=== PATIENT | male | born 1940 | race Caucasian/White ===

== ENCOUNTER 2018-09-18 10:43 | Emergency (ER) | payer MEDICARE, OTHER ==
[~2018-09-18] VITALS: Ht 170.2 cm; Wt 68.9 kg
[2018-09-18] MEDS ORDERED: CANCER MEDICATION (11:01)
--- NOTE | 2018-09-18 11:35 | NUR ---
Dr. Arcos at bedside for MSE.
[2018-09-18 11:51] LABS: BASOPHILS % (AUTO) 0.8 % (0.0-2.0); EOSINOPHILS % (AUTO) 0.5 % (0.0-7.0); HEMATOCRIT 37.3 % (36.7-47.1); HEMOGLOBIN 12.7 g/dL (12.5-16.3); MEAN CORPUSCULAR HEMOGLOBIN 31.4 uug (23.8-33.4); MEAN CORPUSCULAR HGB CONC 34 g/dL (32.5-36.3); MEAN CORPUSCULAR VOLUME 92.5 fL (73.0-96.2); MONOCYTES # (AUTO) 0.5 K/uL (2.0-10.0); MONOCYTES % (AUTO) 10.5 % (0.0-11.0); NEUTROPHILS # (AUTO) 3.4 K/uL (1.8-8.9); NEUTROPHILS % (AUTO) 68.2 % (38.5-71.5); PLATELET COUNT (AUTO) 187 K/uL (152-348); RED BLOOD CELL COUNT(AUTO) 4.04 MIL/uL (4.06-5.63)
[2018-09-18 12:01] LABS: CARBON DIOXIDE 29 mmol/L (21-32); CHLORIDE 102 mmol/L (98-107); GLUCOSE 156 mg/dL (74-106); POTASSIUM 3.8 mmol/L (3.5-5.1); UREA NITROGEN, BLOOD 14 mg/dL (7-18)
[2018-09-18 12:07] LABS: ALANINE AMINOTRANSFERASE 30 U/L (16-63); ALKALINE PHOSPHATASE 35 U/L (50-136); ASPARTATE AMINOTRANSFERASE 21 U/L (15-37); BILIRUBIN,DIRECT 1.8 mg/dL (0.0-0.2); BILIRUBIN,TOTAL 2.3 mg/dL (0.2-1.0); TOTAL PROTEIN, SERUM 7.9 g/dL (6.4-8.2)
[2018-09-18] MEDS ORDERED: NEOMY/BACITRA/POLYMYXIN B OINT UD PACKET TP ONE ×2 (12:21→12:30)
[2018-09-18 12:27] VITALS: BP 123/60
--- NOTE | 2018-09-18 12:28 | NUR ---
Patient discharged to home in stable conditon. Written and verbal after care instructions given. Patient verbalizes understanding of instructions.
== END 2018-09-18 12:28 | disposition home or self-care (01) ==
LOC: ER 10:43
DX: R23.8 Other skin changes (principal); E11.9 Type 2 diabetes mellitus without complications
CPT/HCPCS: 36415; 73130; 85025; 85730; A4663

== ENCOUNTER 2020-04-14 05:09 | Inpatient (IN) | payer MEDICARE, OTHER ==
[~2020-04-14] VITALS: Ht 165.1 cm; Wt 71.8 kg
[~2020-04-14 05:09] MED LIST: CANCER MEDICATION
[2020-04-14] MEDS ORDERED: ONDANSETRON 4 MG/2 ML VIAL IV ONE (05:30)
[2020-04-14] MEDS ORDERED: PANTOPRAZOLE SODIUM 40 MG VIAL IV ONE (05:30)
[2020-04-14] MEDS ORDERED: MORPHINE SULFATE 2 MG/1 ML DISP.SYRIN IV ONE (05:30)
[2020-04-14] MEDS ORDERED: PANTOPRAZOLE SODIUM 40 MG VIAL ONE (05:46)
[2020-04-14] MEDS ORDERED: MORPHINE SULFATE 2 MG/1 ML DISP.SYRIN ONE (05:46)
[2020-04-14] MEDS ORDERED: ONDANSETRON 4 MG/2 ML VIAL ONE (05:46)
[2020-04-14 05:48] LABS: BASOPHILS % (AUTO) 0.8 % (0.0-2.0); EOSINOPHILS % (AUTO) 0.4 % (0.0-7.0); HEMOGLOBIN 11.8 g/dL (12.5-16.3); LYMPHOCYTES # (AUTO) 0.7 K/uL (20.0-40.0); LYMPHOCYTES % (AUTO) 10.8 % (20.5-51.5); MEAN CORPUSCULAR HEMOGLOBIN 31.7 uug (23.8-33.4); MEAN CORPUSCULAR HGB CONC 34 g/dL (32.5-36.3); MEAN CORPUSCULAR VOLUME 93.8 fL (73.0-96.2); MONOCYTES # (AUTO) 0.7 K/uL (2.0-10.0); NEUTROPHILS # (AUTO) 4.9 K/uL (1.8-8.9); PLATELET COUNT (AUTO) 223 K/uL (152-348); RED BLOOD CELL COUNT(AUTO) 3.73 MIL/uL (4.06-5.63); WHITE BLOOD COUNT (AUTO) 6.3 K/uL (3.6-10.2)
[2020-04-14 05:56] LABS: CREATININE 1.1 mg/dL (0.6-1.3); POTASSIUM 3.8 mmol/L (3.5-5.1)
[2020-04-14 06:01] LABS: BILIRUBIN,DIRECT 1.8 mg/dL (0.0-0.2); BILIRUBIN,TOTAL 2.4 mg/dL (0.2-1.0)
--- NOTE | 2020-04-14 06:05 | NUR ---
pt back from CT
[2020-04-14] MEDS ORDERED: METF-442 PO (06:51)
--- NOTE | 2020-04-14 07:18 | NUR ---
Called [facility] for panel placement
--- NOTE | 2020-04-14 07:32 | NUR ---
Pt. admitted to [facility] , under care of Dr. Corrigan Belongs List completed
[2020-04-14 09:00] VITALS: BP 141/66
--- NOTE | 2020-04-14 09:00 | NUR ---
received pt. from ER on wheel chair admitted for pancreatitis. pt. is alert oriented x3 but forgetful. vital signs stable. IV in L AC 20 gauge intact patent. Pt. refuses to have body assessed for initial integumentary assessment. Educated pt. on importance of assessment pt. still refused and says everything is okay no need for assessment. safety measures in place. call light within reach. will continue to monitor pt.
[2020-04-14] MEDS ORDERED: LORAZEPAM 2 MG/1 ML VIAL IV PRN (09:15)
[2020-04-14] MEDS ORDERED: hydrALAZINE HCL 20 MG/1 ML VIAL IV PRN (09:15)
[2020-04-14] MEDS ORDERED: DEXTROSE 50% 50 ML DISP.SYRIN IV PRN (09:15)
[2020-04-14] MEDS ORDERED: MORPHINE SULFATE 2 MG/1 ML DISP.SYRIN IV PRN (09:15)
[2020-04-14] MEDS ORDERED: ONDANSETRON 4 MG/2 ML VIAL IV PRN (09:15)
[2020-04-14] MEDS: ENOXAPARIN SODIUM 40 MG/0.4 ML DISP.SYRIN SQ SCH (10:10)
[2020-04-14] MEDS: IV D5 1/2 NS 1000 ML 1,000 ML IV PRN (10:18)
[2020-04-14 11:22] VITALS: BP 136/67
[2020-04-14] MEDS: BLOOD SUGAR DIAGNOSTIC 1 EACH STRIP VI SCH ×3 (11:52→20:29)
[2020-04-14] MEDS: INSULIN REGULAR, HUMAN 300 UNIT/3 ML VIAL SQ PRN (12:10)
--- NOTE | 2020-04-14 19:30 | NUR ---
RECEIVED PT AWAKE, ALERT AND ORIENTEDX3. PT IN NO ACUTE DISTRESS. IV INTACT. SAFETY AND COMFORT PROVIDED. WILL CONTINUE TO MONITOR.
[2020-04-14 20:03] VITALS: BP 140/74
--- NOTE | 2020-04-14 21:00 | NUR ---
DAUGHTER OF THE PT CALLED AND ASK FOR UPDATE REGARDING HIS DAD. GAVE TELEPHONE NUMBER OF [employer]. PT IN NO ACUTE DISTRESS. SAFETY PROVIDED. WILL CONTINUE TO MONITOR.
[2020-04-15] MEDS: IV D5 1/2 NS 1000 ML 1,000 ML IV PRN (01:17)
[2020-04-15 04:03] VITALS: BP 145/61
[2020-04-15 06:40] LABS: BASOPHILS % (AUTO) 0.9 % (0.0-2.0); EOSINOPHILS # (AUTO) 0.1 K/uL (0.0-0.7); EOSINOPHILS % (AUTO) 1.4 % (0.0-7.0); HEMATOCRIT 35.1 % (36.7-47.1); HEMOGLOBIN 11.9 g/dL (12.5-16.3); LYMPHOCYTES # (AUTO) 0.9 K/uL (20.0-40.0); LYMPHOCYTES % (AUTO) 23.1 % (20.5-51.5); MEAN CORPUSCULAR HEMOGLOBIN 31.9 uug (23.8-33.4); MEAN CORPUSCULAR HGB CONC 34 g/dL (32.5-36.3); MEAN CORPUSCULAR VOLUME 93.9 fL (73.0-96.2); MONOCYTES # (AUTO) 0.6 K/uL (2.0-10.0); MONOCYTES % (AUTO) 15.3 % (0.0-11.0); NEUTROPHILS # (AUTO) 2.3 K/uL (1.8-8.9); NEUTROPHILS % (AUTO) 59.3 % (38.5-71.5); PLATELET COUNT (AUTO) 220 K/uL (152-348); RED BLOOD CELL COUNT(AUTO) 3.74 MIL/uL (4.06-5.63); WHITE BLOOD COUNT (AUTO) 3.9 K/uL (3.6-10.2)
[2020-04-15] MEDS: BLOOD SUGAR DIAGNOSTIC 1 EACH STRIP VI SCH ×2 (06:56→12:51)
--- NOTE | 2020-04-15 06:57 | NUR ---
PT SLEPT INTERMITTENTLY. PT IN NO ACUTE RESPIRATORY DISTRESS. IV INTACT. PRESCRIBED MEDICATION GIVEN AND PT TOLERATED IT WELL. PT GIVEN MORPHINE AT 2106H FOR ABDOMINAL PAIN. PT TOLERATED IT WELL. PT SOMETIMES FORGETFUL NEEDS REORIENTATION. PT DOESN'T WANT TO TAKE OFF HIS PANTS. PT DOESN'T WANT STAFF OR REFUSING TO DO SKIN CHECK ON HIS BODY. SAFETY AND COMFORT PROVIDED. WILL ENDORSE TO INCOMING NURSE FOR CONTINUITY OF CARE.
[2020-04-15 07:03] LABS: THYROID STIMULATING HORMONE 3.107 mIU/mL (0.358-3.740)
[2020-04-15 07:07] LABS: BILIRUBIN,TOTAL 1.9 mg/dL (0.2-1.0); MAGNESIUM 1.8 mg/dL (1.8-2.4); PHOSPHOROUS 3.1 mg/dL (2.5-4.9); POTASSIUM 3.8 mmol/L (3.5-5.1); TOTAL PROTEIN, SERUM 6.9 g/dL (6.4-8.2)
--- NOTE | 2020-04-15 07:50 | NUR ---
received pt. resting in bed alert oriented x4. pt. denies pain/ discomfort. pt. denies sob/ difficulty breathing. pt. denies nausea, vomiting, diarrhea. pt. to be started on clear liquids. IV in L AC 20 gauge intact patent running prescribed fluids. safety measures in place. call light within reach. will continue to monitor pt.
[2020-04-15] MEDS: ENOXAPARIN SODIUM 40 MG/0.4 ML DISP.SYRIN SQ SCH (08:09)
[2020-04-15] MEDS: INSULIN REGULAR, HUMAN 300 UNIT/3 ML VIAL SQ PRN ×2 (08:12→12:53)
[2020-04-15] MEDS ORDERED: PANTOPRAZOLE SODIUM 40 MG VIAL IV SCH (09:00)
[2020-04-15] MEDS ORDERED: ONDA4TAB5 PO (10:55)
[2020-04-15] MEDS ORDERED: HYDR-4384 PO (10:55)
[2020-04-15 11:30] VITALS: BP 105/66
[2020-04-15] MEDS ORDERED: glipiZIDE 10 MG TABLET PO SCH (11:45)
[2020-04-15] MEDS ORDERED: FUROSEMIDE 40 MG TABLET PO SCH (11:45)
[2020-04-15] MEDS ORDERED: POTASSIUM CHLORIDE 20 MEQ TAB.PRT.SR PO ONE (11:45)
[2020-04-15] MEDS ORDERED: METFORMIN HCL 500 MG TABLET PO SCH (11:45)
--- NOTE | 2020-04-15 13:35 | NUR ---
pt. discharged home self care. pt. walked down by RN. IV removed. ID band removed. all belongings with pt. prescription given. pt. is stable.
[2020-04-15] MEDS ORDERED: ATORVASTATIN 10 MG TABLET PO SCH (21:00)
== END 2020-04-15 13:45 | disposition home or self-care (01) | DRG 439 ==
LOC: ER 05:13 → MEDSURG3 08:43
PROVIDERS: ADMIT Nurse Practitioner Acute Care; ATTEND Nurse Practitioner Acute Care
DX: K85.10 Biliary acute pancreatitis without necrosis or infection (principal); E44.0 Moderate protein-calorie malnutrition; D68.69 Other thrombophilia; N20.0 Calculus of kidney; E88.09 Other disorders of plasma-protein metabolism, not elsewhere classified; Z68.26 Body mass index [BMI] 26.0-26.9, adult; Z79.4 Long term (current) use of insulin; Z85.038 Personal history of other malignant neoplasm of large intestine; N40.0 Benign prostatic hyperplasia without lower urinary tract symptoms; R16.0 Hepatomegaly, not elsewhere classified; E11.9 Type 2 diabetes mellitus without complications; D63.8 Anemia in other chronic diseases classified elsewhere
CPT/HCPCS: 36415; 70030-TC; 71045; 83690; 83735; 84100; 84443; 85025; 85730; 93005; A4663; C9113; G0378; J1650; J1815; J2270; J2405; J3490

== ENCOUNTER 2020-04-21 01:30 | Inpatient (IN) | payer MEDICARE, OTHER ==
[~2020-04-21] VITALS: Ht 170.2 cm; Wt 71.7 kg
[~2020-04-21 01:30] MED LIST changes: -CANCER MEDICATION; +HYDR-4384 PO; +METF-442 PO; +ONDA4TAB5 PO
--- NOTE | 2020-04-21 01:40 | NUR ---
Dr. Cortez at bedside for MSE
[2020-04-21] MEDS ORDERED: FENTANYL CITRATE 100 MCG/2 ML AMPUL IV ONE (01:45)
[2020-04-21] MEDS ORDERED: ONDANSETRON 4 MG/2 ML VIAL IV ONE (01:45)
[2020-04-21 02:09] LABS: CREATININE 1.1 mg/dL (0.6-1.3); POTASSIUM 4.2 mmol/L (3.5-5.1)
[2020-04-21 02:10] LABS: BASOPHILS % (AUTO) 0.8 % (0.0-2.0); EOSINOPHILS % (AUTO) 0.5 % (0.0-7.0); HEMOGLOBIN 12.2 g/dL (12.5-16.3); LYMPHOCYTES # (AUTO) 1.3 K/uL (20.0-40.0); LYMPHOCYTES % (AUTO) 20.4 % (20.5-51.5); MEAN CORPUSCULAR HEMOGLOBIN 31.8 uug (23.8-33.4); MEAN CORPUSCULAR HGB CONC 34 g/dL (32.5-36.3); MEAN CORPUSCULAR VOLUME 93.8 fL (73.0-96.2); MONOCYTES # (AUTO) 0.7 K/uL (2.0-10.0); MONOCYTES % (AUTO) 11.5 % (0.0-11.0); NEUTROPHILS # (AUTO) 4.2 K/uL (1.8-8.9); NEUTROPHILS % (AUTO) 66.8 % (38.5-71.5); PLATELET COUNT (AUTO) 223 K/uL (152-348); RED BLOOD CELL COUNT(AUTO) 3.84 MIL/uL (4.06-5.63); WHITE BLOOD COUNT (AUTO) 6.3 K/uL (3.6-10.2)
[2020-04-21] MEDS: IV NORMAL SALINE 500 ML IV ONE (02:10)
[2020-04-21 02:20] LABS: BILIRUBIN,DIRECT 2.1 mg/dL (0.0-0.2); BILIRUBIN,TOTAL 2.7 mg/dL (0.2-1.0); TOTAL PROTEIN, SERUM 8.1 g/dL (6.4-8.2)
[2020-04-21] MEDS ORDERED: KETAMINE HCL 500 MG/10 ML INJ IV ONE (02:45)
[2020-04-21] MEDS ORDERED: MORPHINE SULFATE 2 MG/1 ML DISP.SYRIN IV ONE (02:45)
[2020-04-21] MEDS ORDERED: IV NORMAL SALINE 500 ML IV ONE (02:45)
[2020-04-21] MEDS ORDERED: KETAMINE HCL 500 MG/10 ML INJ ONE (02:53)
[2020-04-21] MEDS ORDERED: MORPHINE SULFATE 2 MG/1 ML DISP.SYRIN ONE (02:53)
--- NOTE | 2020-04-21 03:10 | NUR ---
Dr. Cortez on panel call with Ashleigh Siddiqui NP
[2020-04-21] MEDS ORDERED: IV NS 1000 ML 1,000 ML IV PRN (03:12)
--- NOTE | 2020-04-21 03:12 | NUR ---
called for bed. Room 317
[2020-04-21] MEDS ORDERED: ONDANSETRON 4 MG/2 ML VIAL IV PRN (03:15)
[2020-04-21] MEDS ORDERED: MORPHINE SULFATE 2 MG/1 ML DISP.SYRIN IV PRN (03:15)
[2020-04-21] MEDS ORDERED: HYDROCODONE/APAP 5-325MG TABLET PO PRN (03:15)
[2020-04-21] MEDS ORDERED: Z GUARD REMEDY PASTE 57 GM TUBE TOP PRN (03:15)
--- NOTE | 2020-04-21 03:18 | NUR ---
Pt refused to do proper inventory.
--- NOTE | 2020-04-21 03:38 | NUR ---
Notified Dr. Cortez regarding BP: 208/84. No new orders at this time
[2020-04-21 03:43] LABS: *BILIRUBIN,URIN NEGATIVE (NEGATIVE); *BLOOD, URINE 1+ (NEGATIVE); *CLARITY,URINE CLEAR (CLEAR); *COLOR,URINE YELLOW (YELLOW); *KETONES,URINE NEGATIVE (NEGATIVE); *UROBILINOGEN,URINE 0.2 E.U./dl (NORMAL); LEUKOCYTE ESTERASE ,URINE NEGATIVE (NEGATIVE); NITRITE, URINE NEGATIVE (NEGATIVE); PH,URINE 6.5 (5.0-8.0); UGLUCOSE TRACE (NEGATIVE)
[2020-04-21] MEDS ORDERED: HYDROMORPHONE 1 MG/1 ML DISP.SYRIN IV ONE (03:45)
[2020-04-21] MEDS ORDERED: HYDROMORPHONE 1 MG/1 ML DISP.SYRIN ONE (03:52)
[2020-04-21 03:54] LABS: SQUAMOUS EPITHELIAL CELL,UR FEW /HPF (NONE SEEN)
--- NOTE | 2020-04-21 04:17 | NUR ---
pt in bed asleep, easily arousable.
--- NOTE | 2020-04-21 04:27 | NUR ---
[facility] , under care of Ashleigh Siddiqui, WARP HAULER All belongings with pt. pt refused to do proper inventory a/ox4. no s/s of distress transported via gurney respirations even and unlabored
--- NOTE | 2020-04-21 04:35 | NUR ---
Received patient awake and alert. Patient shows no signs or symptoms of distress at this time. Vital signs stable. BP- 119/71, P- 68, R- 18, T-97.6, O2-98% on RA. Pt complains of having 8/10 abdominal pain at this time. Pt received pain medication in ED before coming up to M/S. IV 20g intact and patent. Bed set to lowest position. Call light within reach. Will continue to monitor patient.
[2020-04-21 04:40] VITALS: BP 119/71
--- NOTE | 2020-04-21 06:37 | NUR ---
Patient shows no signs or symptoms of distress at this time. Vital signs stable. Patient resting comfortably in bed. Will endorse patient to day shift nurse in stable condition.
[2020-04-21 08:00] VITALS: BP 167/63
--- NOTE | 2020-04-21 08:00 | NUR ---
Received pt in bed awake, AOx4 complaining of severe abdominal pain. On RA with no SOB or distress noted at this time. IV on left AC 20g flushed and patent. Refused to change clothes to hospital gown. Abdomen distended and refused palpation. NPO order, carried out. Bed locked in lowest position with siderails 2x up. Call light and phone within reach.
[2020-04-21] MEDS: PANTOPRAZOLE SODIUM 40 MG VIAL IV SCH (09:43)
--- NOTE | 2020-04-21 11:30 | NUR ---
Per pt, already emptied his bladder. Pt went down for HIDA scan
[2020-04-21] MEDS ORDERED: [UNRECOGNIZED DRUG - CODE] PO (13:04)
[2020-04-21] MEDS: HYDROMORPHONE 1 MG/1 ML DISP.SYRIN IV PRN (16:08)
[2020-04-21 16:43] VITALS: BP 149/49
[2020-04-21] MEDS: IV NS 1000 ML 1,000 ML IV PRN (18:53)
--- NOTE | 2020-04-21 19:40 | NUR ---
Received patient in bed. AAO x3. No acute distress or SOB was noted. Farsi speaking. On room air. Complained of abdominal pain. IV line on his left AC patent, no sign of inflammation. IV NS running at the rate of 150 ml/hour. Physical assessment done. Safety measures maintained, fall prevention observed. Bed in locked and low position, side rails up x2 for safety, bed alarm on. Call light and frequently using items within reach. Continue to monitor.
[2020-04-21 20:00] VITALS: BP 146/51
--- NOTE | 2020-04-21 20:31 | NUR ---
According to Dr. Spear 's order, patient is NPO after midnight. Patient has consult with Dr. Pinto for cardiac clearance and also with Dr. Paul tomorrow morning. Will endorse to the oncoming nurse.
[2020-04-21] MEDS: PIPERACILLIN SODIUM/TAZOBACTAM 3.375 G in IV DEXTROSE 5% 50 ML IV SCH (21:23)
[2020-04-22] MEDS: HYDROMORPHONE 1 MG/1 ML DISP.SYRIN IV PRN ×3 (02:14→19:58)
[2020-04-22 04:00] VITALS: BP 140/44
[2020-04-22] MEDS: PIPERACILLIN SODIUM/TAZOBACTAM 3.375 G in IV DEXTROSE 5% 50 ML IV SCH ×3 (05:19→21:01)
[2020-04-22 06:24] LABS: BASOPHILS # (AUTO) 0.1 K/uL (0.0-8.0); BASOPHILS % (AUTO) 0.4 % (0.0-2.0); HEMATOCRIT 37.6 % (36.7-47.1); HEMOGLOBIN 12.5 g/dL (12.5-16.3); LYMPHOCYTES # (AUTO) 0.8 K/uL (20.0-40.0); LYMPHOCYTES % (AUTO) 6.4 % (20.5-51.5); MEAN CORPUSCULAR HEMOGLOBIN 31.2 uug (23.8-33.4); MEAN CORPUSCULAR HGB CONC 33 g/dL (32.5-36.3); MEAN CORPUSCULAR VOLUME 93.5 fL (73.0-96.2); MONOCYTES # (AUTO) 1.3 K/uL (2.0-10.0); MONOCYTES % (AUTO) 10.6 % (0.0-11.0); NEUTROPHILS # (AUTO) 10.3 K/uL (1.8-8.9); NEUTROPHILS % (AUTO) 82.6 % (38.5-71.5); PLATELET COUNT (AUTO) 213 K/uL (152-348); RED BLOOD CELL COUNT(AUTO) 4.02 MIL/uL (4.06-5.63); WHITE BLOOD COUNT (AUTO) 12.5 K/uL (3.6-10.2)
[2020-04-22 06:34] LABS: BILIRUBIN,DIRECT 2.4 mg/dL (0.0-0.2); BILIRUBIN,TOTAL 3.4 mg/dL (0.2-1.0); CREATININE 1.2 mg/dL (0.6-1.3); MAGNESIUM 1.6 mg/dL (1.8-2.4); PHOSPHOROUS 2.9 mg/dL (2.5-4.9); POTASSIUM 3.7 mmol/L (3.5-5.1); TOTAL PROTEIN, SERUM 7.1 g/dL (6.4-8.2)
[2020-04-22] MEDS: PANTOPRAZOLE SODIUM 40 MG VIAL IV SCH (08:14)
[2020-04-22] MEDS: MAGNESIUM SULFATE/D5W 100 ML IV SCH ×2 (08:14→09:28)
[2020-04-22] MEDS: POTASSIUM CHLORIDE 50 ML IV SCH ×2 (10:32→11:35)
[2020-04-22 11:42] VITALS: BP 158/67
[2020-04-22] MEDS: ACETAMINOPHEN 325 MG TABLET PO PRN (11:44)
[2020-04-22 15:08] VITALS: BP 148/67
[2020-04-22 16:00] VITALS: BP 146/65
--- NOTE | 2020-04-22 18:11 | NUR ---
EOS note: No significant acute changes during this shift. Pt. A/Ox4, verbally responsive and able to make his needs known. All due medications given as ordered and tolerated well. Pt. reported tolerable lv of pain after receiving PRN IV dilaudid. No ASE from IV ABX, LFA PIV remain patent and intact. Skin care rendered. Magnesium and K replaced this shift. Pt. seen by Dr. Paul in AM with order for MRCP. Pt. and DTR (Celine [phone]) aware and amenable to procedure. [facility] AM Sohan on-site at 1210, pt. left unit in stable condition and returned at 1407. MRCP results relayed to Dr. Paul promptly. with order to obtain consent for Lap roselyn possible open. Pt. to be NPO by midnight. Nursing garbage collector supervisor made aware, surgery time schedule at 04/23/2020 0730. DTR Celine on phone while obtaining consent. Used phone household appliance installer as well ([employer] #[id number]). All pt. needs attended and met. Safety measures in place. Call light and all frequently used items within pt. reach. Will endorse to oncoming shift accordingly.
[2020-04-22 20:17] VITALS: BP 162/68
[2020-04-22] MEDS: IV NS 1000 ML 1,000 ML IV PRN (20:26)
--- NOTE | 2020-04-22 20:50 | NUR ---
Patient had high BP:162/68, complaining of severe epigastric pain rated 8/10. No other symptoms presented. Charge nurse aware. IV Dilaudid 0.5 mg administered and effective. after controlling the pain BP: 134/65. Continue to monitor.
[2020-04-23] MEDS ORDERED: ACETAMINOPHEN 650 MG SUPP.RECT RC PRN (00:45)
[2020-04-23 00:54] LABS: BASOPHILS # (AUTO) 0.1 K/uL (0.0-8.0); BASOPHILS % (AUTO) 0.7 % (0.0-2.0); EOSINOPHILS % (AUTO) 0.2 % (0.0-7.0); HEMATOCRIT 33.8 % (36.7-47.1); HEMOGLOBIN 11.4 g/dL (12.5-16.3); LYMPHOCYTES # (AUTO) 0.8 K/uL (20.0-40.0); LYMPHOCYTES % (AUTO) 5.9 % (20.5-51.5); MEAN CORPUSCULAR HEMOGLOBIN 31.5 uug (23.8-33.4); MEAN CORPUSCULAR HGB CONC 34 g/dL (32.5-36.3); MEAN CORPUSCULAR VOLUME 93.7 fL (73.0-96.2); MONOCYTES # (AUTO) 1.6 K/uL (2.0-10.0); MONOCYTES % (AUTO) 11.6 % (0.0-11.0); NEUTROPHILS # (AUTO) 11.1 K/uL (1.8-8.9); NEUTROPHILS % (AUTO) 81.6 % (38.5-71.5); PLATELET COUNT (AUTO) 173 K/uL (152-348); RED BLOOD CELL COUNT(AUTO) 3.61 MIL/uL (4.06-5.63); WHITE BLOOD COUNT (AUTO) 13.6 K/uL (3.6-10.2)
--- NOTE | 2020-04-23 03:01 | NUR ---
Patient had temperature of 99.7 F at the starting shift. Monitored patient. Rechecked again T: 100.3. No other symptoms presented. Cooling measures applied and contacted [facility] on-call. Received order of Stat CBC, Tylenol 650 mg suppository Q4HPRN, and continue IV fluid from Ashleigh Siddiqui CLOTH SHADER. Tylenol administered with temporary effect, T:99.4 and went up again to 101.4 in spite of cooling measures. CBC: WBC:13.6, Hb:11.4, Hct:33.8. Continue to monitor.
[2020-04-23 04:00] VITALS: BP 125/43
[2020-04-23] MEDS: PIPERACILLIN SODIUM/TAZOBACTAM 3.375 G in IV DEXTROSE 5% 50 ML IV SCH ×3 (05:06→21:10)
[2020-04-23 05:53] LABS: BASOPHILS % (AUTO) 0.4 % (0.0-2.0); HEMATOCRIT 33.5 % (36.7-47.1); HEMOGLOBIN 11.2 g/dL (12.5-16.3); LYMPHOCYTES # (AUTO) 0.9 K/uL (20.0-40.0); LYMPHOCYTES % (AUTO) 7.4 % (20.5-51.5); MEAN CORPUSCULAR HEMOGLOBIN 31.2 uug (23.8-33.4); MEAN CORPUSCULAR HGB CONC 34 g/dL (32.5-36.3); MEAN CORPUSCULAR VOLUME 93.1 fL (73.0-96.2); MONOCYTES # (AUTO) 1.4 K/uL (2.0-10.0); NEUTROPHILS # (AUTO) 10.2 K/uL (1.8-8.9); NEUTROPHILS % (AUTO) 81.2 % (38.5-71.5); PLATELET COUNT (AUTO) 174 K/uL (152-348); WHITE BLOOD COUNT (AUTO) 12.6 K/uL (3.6-10.2)
[2020-04-23 06:03] LABS: BILIRUBIN,TOTAL 3.8 mg/dL (0.2-1.0); CREATININE 1.1 mg/dL (0.6-1.3); MAGNESIUM 1.8 mg/dL (1.8-2.4); PHOSPHOROUS 1.8 mg/dL (2.5-4.9); POTASSIUM 3.3 mmol/L (3.5-5.1); TOTAL PROTEIN, SERUM 6.5 g/dL (6.4-8.2)
[2020-04-23] MEDS ORDERED: BUPIVACAINE 0.25% 30 ML VIAL ONE (06:57)
[2020-04-23] MEDS ORDERED: HYDROMORPHONE 2 MG/1 ML DISP.SYRIN ONE (07:28)
[2020-04-23] MEDS ORDERED: ROCURONIUM BROMIDE 50 MG/5 ML VIAL ONE (07:38)
[2020-04-23] MEDS ORDERED: SUCCINYLCHOLINE CHLORIDE 200 MG/10 ML VIAL ONE (09:41)
[2020-04-23] MEDS ORDERED: PROPOFOL 200 MG/20 ML BOTTLE ONE (09:41)
[2020-04-23] MEDS ORDERED: ONDANSETRON 4 MG/2 ML VIAL ONE (09:41)
[2020-04-23] MEDS ORDERED: LIDOCAINE-MPF 2% 5 ML VIAL ONE (09:41)
[2020-04-23] MEDS ORDERED: GLYCOPYRROLATE 0.2 MG/ML VIAL ONE (09:41)
[2020-04-23] MEDS ORDERED: METOCLOPRAMIDE HCL 10 MG/2 ML VIAL ONE (09:41)
[2020-04-23] MEDS ORDERED: KETOROLAC TROMETHAMINE 30 MG INJ ONE (09:41)
[2020-04-23] MEDS ORDERED: EPHEDRINE SULFATE 50 MG/ML AMPUL ONE (09:41)
[2020-04-23] MEDS ORDERED: NEOSTIGMINE METHYLSULFATE 10 MG/10 ML VIAL ONE (09:41)
[2020-04-23 10:14] VITALS: BP 147/65
[2020-04-23] MEDS: PANTOPRAZOLE SODIUM 40 MG VIAL IV SCH (10:22)
--- NOTE | 2020-04-23 10:28 | NUR ---
pt received from recovery room via bed in stable condition
[2020-04-23] MEDS: IV NS 1000 ML 1,000 ML IV PRN (10:37)
[2020-04-23] MEDS ORDERED: POTASSIUM CHLORIDE 20 MEQ TAB.PRT.SR PO ONE (11:00)
[2020-04-23] MEDS ORDERED: NEUTRA PHOS PACKET PO ONE (11:00)
[2020-04-23] MEDS: METFORMIN HCL 500 MG TABLET PO SCH ×2 (11:11→17:21)
[2020-04-23 15:13] VITALS: BP 111/50
[2020-04-23] MEDS ORDERED: Medication Not On Formulary EA (Metformin Hcl 1,000 MG) PO SCH (17:00)
[2020-04-23] MEDS: HYDROMORPHONE 1 MG/1 ML DISP.SYRIN IV PRN ×2 (17:39→23:03)
--- NOTE | 2020-04-23 17:55 | NUR ---
pt did not urinate after the surgery bladder scan done it shows [address] chou made aware .
--- NOTE | 2020-04-23 19:10 | NUR ---
Patient in bed, AAOx3. Patient denies any SOB. Patient complains of pain on his ex lap incision. Will assess and give prescribed PRN pain medication. Patient is on 3L NC and setting WNL. IV on LAC is intact and running NS at 75cc. Patients ex lap incision dressing is intact, dry and no s/s of infection. Patient's TYREE is intact and draining well. Patient's vitals stable. Safety measures in place. Call light within reach. Will continue with the plan of care.
--- NOTE | 2020-04-23 19:42 | NUR ---
Patient was able to urinate roughly 100cc output. will continue to monitor. Addendum: 04/24/20 at 0507 by SUSHMA YANG RN "per patient" he was able to urinate.
[2020-04-23] MEDS: ACETAMINOPHEN 325 MG TABLET PO PRN (20:29)
[2020-04-23 20:33] VITALS: BP 147/65
[2020-04-24] MEDS: HYDROMORPHONE 1 MG/1 ML DISP.SYRIN IV PRN ×5 (03:14→22:20)
--- NOTE | 2020-04-24 04:10 | NUR ---
Bladder scan shows 650ml of urine. Straight catheterization was done, collected 700ml of tea colored urine.
[2020-04-24] MEDS: PIPERACILLIN SODIUM/TAZOBACTAM 3.375 G in IV DEXTROSE 5% 50 ML IV SCH ×3 (05:27→22:21)
[2020-04-24] MEDS: IV NS 1000 ML 1,000 ML IV PRN (05:28)
[2020-04-24 06:56] VITALS: BP 128/64
--- NOTE | 2020-04-24 06:56 | NUR ---
Patient slept intermittently throughout the night. Patient is awake and denies acute distress at this time. Patient's ex lap surgical dressing is intact, dry and no s/s of infection. TYREE drainage is intact and draining well, collected 25ml of serosanguineous blood. Bladder scan was done, recorded 650ml of urine, straight catheter was initiated, collected 700 ml of tea colored urine. Sample was sent to the lab. Fall precaution maintained. Pain managed effectively. Patient's vitals stable. Comfort care and needs attended. Safety measures in place. Call light within reach. Will endorse to the oncoming nurse accordingly.
[2020-04-24 07:30] LABS: BASOPHILS % (AUTO) 0.4 % (0.0-2.0); EOSINOPHILS % (AUTO) 0.1 % (0.0-7.0); HEMATOCRIT 31.1 % (36.7-47.1); HEMOGLOBIN 10.4 g/dL (12.5-16.3); LYMPHOCYTES # (AUTO) 0.7 K/uL (20.0-40.0); LYMPHOCYTES % (AUTO) 8.8 % (20.5-51.5); MEAN CORPUSCULAR HEMOGLOBIN 31.6 uug (23.8-33.4); MEAN CORPUSCULAR HGB CONC 34 g/dL (32.5-36.3); MEAN CORPUSCULAR VOLUME 94.4 fL (73.0-96.2); MONOCYTES # (AUTO) 0.8 K/uL (2.0-10.0); MONOCYTES % (AUTO) 9.5 % (0.0-11.0); NEUTROPHILS # (AUTO) 6.5 K/uL (1.8-8.9); NEUTROPHILS % (AUTO) 81.2 % (38.5-71.5); PLATELET COUNT (AUTO) 182 K/uL (152-348)
[2020-04-24 07:35] LABS: BILIRUBIN,TOTAL 5.4 mg/dL (0.2-1.0); CREATININE 1.2 mg/dL (0.6-1.3); MAGNESIUM 1.7 mg/dL (1.8-2.4); PHOSPHOROUS 1.8 mg/dL (2.5-4.9); POTASSIUM 3.7 mmol/L (3.5-5.1); TOTAL PROTEIN, SERUM 7.1 g/dL (6.4-8.2)
[2020-04-24] MEDS: PANTOPRAZOLE SODIUM 40 MG VIAL IV SCH (08:53)
[2020-04-24] MEDS: MAGNESIUM HYDROXIDE 30 ML LIQUID UDC PO PRN (08:53)
[2020-04-24] MEDS: METFORMIN HCL 500 MG TABLET PO SCH ×3 (08:54→17:45)
[2020-04-24] MEDS ORDERED: IBRUTINIB 560 MG PO SCH (09:00)
--- NOTE | 2020-04-24 09:10 | NUR ---
Order for MRCP for pt. Spoke to Sumeet at [place] scheduled for 12:30 pt. to be NPO. Pt. is refusing MRCP and does not want to go. pt. states that he does not want any more scans on his abdomen and will leave. Educated pt. on importance of MRCP. Pt. still refused. Spoke to Dr. Paul. Dr. Paul aware and will talk to daughter.
--- NOTE | 2020-04-24 09:15 | NUR ---
After patient assessment, abdomen was distended and tender to touch, bowel sounds active. Patient states he i constipated gave prn milk of magnesia, will help ambulate patient. Scanned bladder for urine since patient still has not voided on his own. Scan showed a volume of 119. Will continue to monitor
--- NOTE | 2020-04-24 10:18 | NUR ---
pt. refusing MRCP at [place]. Used neuropathologist to explain purpose of MRCP. Pt. refused. Doctor Beverly aware, called Sumeet at [place] he is aware.
[2020-04-24 12:00] VITALS: BP 150/60
[2020-04-24] MEDS: MAGNESIUM SULFATE/D5W 100 ML IV SCH ×2 (14:07→15:45)
[2020-04-24 14:57] LABS: *BLOOD, URINE 2+ (NEGATIVE); *CLARITY,URINE CLEAR (CLEAR); *COLOR,URINE AMBER (YELLOW); *KETONES,URINE NEGATIVE (NEGATIVE); LEUKOCYTE ESTERASE ,URINE NEGATIVE (NEGATIVE); NITRITE, URINE NEGATIVE (NEGATIVE); UGLUCOSE NEGATIVE (NEGATIVE)
[2020-04-24 14:58] LABS: *BILIRUBIN,URIN 2+ (NEGATIVE)
[2020-04-24 15:06] LABS: BACTERIA,URINE FEW /HPF (NONE SEEN); SQUAMOUS EPITHELIAL CELL,UR FEW /HPF (NONE SEEN)
[2020-04-24] MEDS ORDERED: NEUTRA PHOS PACKET PO ONE (15:15)
[2020-04-24 15:26] LABS: BACTERIA,URINE FEW /HPF (NONE SEEN); SQUAMOUS EPITHELIAL CELL,UR FEW /HPF (NONE SEEN)
[2020-04-24 16:01] VITALS: BP 142/55
--- NOTE | 2020-04-24 18:08 | NUR ---
Pt. urinated multiple times throughout shift. pt. had bowel movement consisting of small soft stool. pt. walked with PT. pt. refused MRCP doctor Beverly and doctor Nerissa floyd. Jean-Pierre marroquin drainage of 25 cc of sanguineous fluid.
--- NOTE | 2020-04-24 19:00 | NUR ---
PATIENT ALERT ORIENTED, NO SOB NO CHEST PAIN. PATIENT HAS NO COMPLAIN OF PAIN AT THIS TIME. PATIENT ABDOMEN SOFT AT THIS TIME. TYREE DRAINING WITH SEROSANGUINEOUS DRAINAGE. CALL LIGHT WITHIN REACH.
[2020-04-24 20:00] VITALS: BP 144/66
--- NOTE | 2020-04-24 20:39 | NUR ---
PATIENT COMPLAINING OF ABDOMINAL GAS, NOTIFY DR. ROCHA WITH ORDER.
[2020-04-24] MEDS: SIMETHICONE 80 MG TAB.CHEW PO PRN (21:02)
--- NOTE | 2020-04-25 01:17 | NUR ---
PATIENT PASSING GAS, NO FURTHER COMPLAIN OF ABDOMINAL GAS PAIN, TYREE DRAINED WITH 25 CC SEROSANGENEOUS DRAINAGE, CONT ON PAIN MANAGEMENT.
[2020-04-25] MEDS: ACETAMINOPHEN 325 MG TABLET PO PRN ×2 (01:54→13:13)
[2020-04-25] MEDS: HYDROMORPHONE 1 MG/1 ML DISP.SYRIN IV PRN ×4 (03:36→21:14)
[2020-04-25 04:00] VITALS: BP 140/49
[2020-04-25] MEDS: PIPERACILLIN SODIUM/TAZOBACTAM 3.375 G in IV DEXTROSE 5% 50 ML IV SCH ×3 (05:27→21:13)
[2020-04-25] MEDS: PANTOPRAZOLE SODIUM 40 MG TABLET.DR PO SCH (06:04)
--- NOTE | 2020-04-25 06:52 | NUR ---
PATIENT ALERT ORIENTED, NO SOB NO CHEST PAIN, PATIENT CONTINUE ON PAIN MANAGEMENT OF S/P LAP EPI, TYREE DRAINING WITH SEROSANGENEOUS IN SMALL AMOUNT. PATIENT ABDOMEN DRESSING INTACT, PATIENT HAS BOWEL MOVEMENT, AND PASSING GAS. CONT TO MONITOR.
[2020-04-25 07:17] LABS: BASOPHILS % (AUTO) 0.7 % (0.0-2.0); EOSINOPHILS # (AUTO) 0.1 K/uL (0.0-0.7); HEMATOCRIT 31.2 % (36.7-47.1); HEMOGLOBIN 10.4 g/dL (12.5-16.3); LYMPHOCYTES # (AUTO) 0.8 K/uL (20.0-40.0); LYMPHOCYTES % (AUTO) 13.6 % (20.5-51.5); MEAN CORPUSCULAR HEMOGLOBIN 31.3 uug (23.8-33.4); MEAN CORPUSCULAR HGB CONC 33 g/dL (32.5-36.3); MONOCYTES # (AUTO) 0.7 K/uL (2.0-10.0); MONOCYTES % (AUTO) 11.3 % (0.0-11.0); NEUTROPHILS # (AUTO) 4.5 K/uL (1.8-8.9); NEUTROPHILS % (AUTO) 73.4 % (38.5-71.5); PLATELET COUNT (AUTO) 208 K/uL (152-348); RED BLOOD CELL COUNT(AUTO) 3.32 MIL/uL (4.06-5.63); WHITE BLOOD COUNT (AUTO) 6.2 K/uL (3.6-10.2)
[2020-04-25 07:37] LABS: BILIRUBIN,DIRECT 4.1 mg/dL (0.0-0.2); BILIRUBIN,TOTAL 5.2 mg/dL (0.2-1.0); CREATININE 1.2 mg/dL (0.6-1.3); PHOSPHOROUS 2.3 mg/dL (2.5-4.9); POTASSIUM 3.4 mmol/L (3.5-5.1); TOTAL PROTEIN, SERUM 6.9 g/dL (6.4-8.2)
--- NOTE | 2020-04-25 08:00 | NUR ---
RECEIVED PATIENT AWAKE, ALERT AND ORIENTED. NO SIGNS OF RESPIRATORY DISTRESS, PATIENT SATURATING WELL ON ROOM AIR. PATIENT REPORTED PAIN OF 8/10 AND WILL GIVE PAIN MEDICATION ORDERED AND REASSESS. ABDOMEN STILL DISTENDED, SOFT AND TENDER TO TOUCH. DRESSINGS ARE CLEAN DRY AND IN PLACE NUPUR L[place]S STILL IN PLACE WITH SANGUINOUS DRAINAGE SAFETY PRECAUTIONS IMPLEMENTED, BED IN THE LOWEST POSITION AND LOCKED AND CALL LIGHT AND PATIENT BELONGINGS ARE WITHIN REACH. WILL CONTINUE TO MONITOR AND OBSERVE.
[2020-04-25] MEDS: IV NS 1000 ML 1,000 ML IV PRN (10:15)
[2020-04-25 12:00] VITALS: BP 166/60
--- NOTE | 2020-04-25 12:07 | NUR ---
pt. blood pressure elevated at 166/ 60. DNP Rainer aware. no new orders.
--- NOTE | 2020-04-25 12:15 | NUR ---
PATIENT AGREED TO MRCP, DNP JESSICA MOTLEY AWARE. NEW ORDER GIVEN FOR MRCP AND ORDER FOR 1MG ATIVAN PO ONCE. WILL DO MRI CHECKLIST AND KEEP PATIENT NPO UNTIL MRCP IS DONE. PATIENT COMPLIANT WITH PLAN. WILL CONTINUE TO MONITOR.
[2020-04-25] MEDS ORDERED: POTASSIUM PHOSPHATE MM 15 MMOL in IV NORMAL SALINE 250 ML IV ONE (14:00)
[2020-04-25] MEDS ORDERED: LORAZEPAM 1 MG TABLET PO ONE (15:00)
--- NOTE | 2020-04-25 15:13 | NUR ---
PATIENT PICKED UP BY AMBULANCE TO BE TAKEN TO [facility] FOR MRCP. PATIENT IS CALM AND COOPERATIVE. PATIENT HAS BEEN KEPT NPO SINCE 1000. ATIVAN GIVEN, MRI CHECKLIST DONE. ALL BELONGINGS WITH THE AMBULANCE. PATIENT IS STABLE
--- NOTE | 2020-04-25 16:15 | NUR ---
At 1615 patient came back from [facility], patient is stable . Will continue to observe and monitor
[2020-04-25] MEDS: METFORMIN HCL 500 MG TABLET PO SCH (17:46)
--- NOTE | 2020-04-25 18:39 | NUR ---
Patient resting comfortably in bed, vital signs stable, no sign of respiratory distress at this time, saturating well on room air. safety measure in place, bed in lowest position and bed is locked, call light and belongings within reach. Will endorse patient over to the oncoming shift.
--- NOTE | 2020-04-25 19:20 | NUR ---
Received patient lying in bed. AAOX3. In no acute distress. Abd dressing intact and dry. TYREE drain intact and draining serosanguineous drainage. Right upper arm IV site intact and patent. IVF and KCl infusing at this time. Needs assessed and attended to. Safety measure initiated and call conti within reached.
--- NOTE | 2020-04-25 19:34 | NUR ---
20 cc of sanguineous fluid removed from sandra marroquin drain
[2020-04-25 20:30] VITALS: BP 109/71
[2020-04-26] MEDS: ACETAMINOPHEN 325 MG TABLET PO PRN ×2 (01:09→20:52)
[2020-04-26] MEDS: HYDROMORPHONE 1 MG/1 ML DISP.SYRIN IV PRN ×3 (03:53→14:59)
[2020-04-26 05:52] LABS: BASOPHILS # (AUTO) 0.1 K/uL (0.0-8.0); BASOPHILS % (AUTO) 1.2 % (0.0-2.0); EOSINOPHILS # (AUTO) 0.1 K/uL (0.0-0.7); HEMOGLOBIN 9.8 g/dL (12.5-16.3); LYMPHOCYTES # (AUTO) 0.7 K/uL (20.0-40.0); LYMPHOCYTES % (AUTO) 11.8 % (20.5-51.5); MEAN CORPUSCULAR HEMOGLOBIN 31.5 uug (23.8-33.4); MEAN CORPUSCULAR HGB CONC 34 g/dL (32.5-36.3); MEAN CORPUSCULAR VOLUME 93.6 fL (73.0-96.2); MONOCYTES # (AUTO) 0.6 K/uL (2.0-10.0); MONOCYTES % (AUTO) 9.9 % (0.0-11.0); NEUTROPHILS # (AUTO) 4.3 K/uL (1.8-8.9); NEUTROPHILS % (AUTO) 75.1 % (38.5-71.5); PLATELET COUNT (AUTO) 227 K/uL (152-348); WHITE BLOOD COUNT (AUTO) 5.7 K/uL (3.6-10.2)
[2020-04-26 06:00] VITALS: BP 134/68
[2020-04-26] MEDS: PANTOPRAZOLE SODIUM 40 MG TABLET.DR PO SCH (06:09)
[2020-04-26] MEDS: PIPERACILLIN SODIUM/TAZOBACTAM 3.375 G in IV DEXTROSE 5% 50 ML IV SCH ×3 (06:09→21:02)
[2020-04-26 06:10] LABS: CREATININE 1.1 mg/dL (0.6-1.3); PHOSPHOROUS 2.3 mg/dL (2.5-4.9); POTASSIUM 3.4 mmol/L (3.5-5.1); TOTAL PROTEIN, SERUM 6.4 g/dL (6.4-8.2)
--- NOTE | 2020-04-26 06:29 | NUR ---
AAOX3. In no acute distress. Abd dressing intact and dry. TYREE drain intact and draining minimal amount of serosanguineous drainage. Right upper arm IV site intact and patent. IVF infusing. No adverse reaction noted from IV ABX. Needs assessed and attended to. Safety measure maintained and call conti within reached.
[2020-04-26] MEDS: SIMETHICONE 80 MG TAB.CHEW PO PRN ×3 (06:59→17:34)
[2020-04-26] MEDS: METFORMIN HCL 500 MG TABLET PO SCH ×2 (08:40→17:16)
[2020-04-26] MEDS: IV NS 1000 ML 1,000 ML IV PRN (08:47)
--- NOTE | 2020-04-26 09:06 | NUR ---
DR JESSICA MICHEL HERE TO SEE PATIENT WITH NO NEW ORDERS AT THIS TIME
[2020-04-26] MEDS ORDERED: POTASSIUM CHLORIDE 50 ML IV SCH (10:15)
--- NOTE | 2020-04-26 11:00 | NUR ---
UP AND AMBULATED WITH THE PHYSICAL THERAPY IN THE HALLWAY WITH [facility]URANCE AT THIS TIME PATIENT ENCOURAGED USE INCENTIVE SPIROMETER ORDERED AND HE EXPRESSED UNDERSTANDING
[2020-04-26 11:55] VITALS: BP 142/67
--- NOTE | 2020-04-26 12:52 | NUR ---
POTASSIUM LEVEL IS 3.[address] JESSICA MONTIEL WITH NEW ORDERS AND NOTED
[2020-04-26] MEDS ORDERED: POTASSIUM CHLORIDE 20 MEQ TAB.PRT.SR PO ONE (13:00)
--- NOTE | 2020-04-26 15:00 | NUR ---
MEDICATED WITH DILAUDID FOR PAIN ORDERED WILL OBSERVE EFFECTIVENESS
[2020-04-26 16:00] VITALS: BP 138/62
[2020-04-26] MEDS ORDERED: NEUTRA PHOS PACKET PO ONE (18:00)
--- NOTE | 2020-04-26 19:20 | NUR ---
Received patient lying in bed. AAOX3. No sign of acute distress. Abd dressing intact and dry. TYREE drain intact and draining serosanguineous drainage. Right forearm IV site intact and patent. Safety measure initiated and call conti within reach.
[2020-04-26 21:28] VITALS: BP 170/78
[2020-04-27] MEDS: HYDROMORPHONE 1 MG/1 ML DISP.SYRIN IV PRN ×3 (01:01→21:12)
[2020-04-27] MEDS: SIMETHICONE 80 MG TAB.CHEW PO PRN ×2 (04:14→23:03)
[2020-04-27 04:50] VITALS: BP 161/77
[2020-04-27] MEDS: PIPERACILLIN SODIUM/TAZOBACTAM 3.375 G in IV DEXTROSE 5% 50 ML IV SCH ×3 (05:31→21:12)
[2020-04-27] MEDS: ACETAMINOPHEN 325 MG TABLET PO PRN ×2 (05:56→16:59)
[2020-04-27] MEDS: PANTOPRAZOLE SODIUM 40 MG TABLET.DR PO SCH (06:09)
--- NOTE | 2020-04-27 06:37 | NUR ---
Patient is AAOX3. No signs of acute distress. Patient c/o ABD pain and flatulence. PRN Dilaudid and Simethicone administered per order. Patient slightly febrile, Acetaminophen was given. Right forearm patent and intact, IV Zosyn running at 12.5ml/hr. Right TYREE drain draining serosanguineous drainage. Needs attended to and met. Safety measures maintained and endorsed to oncoming nurse.
[2020-04-27 06:42] LABS: BILIRUBIN,TOTAL 4.9 mg/dL (0.2-1.0); CREATININE 1.1 mg/dL (0.6-1.3); POTASSIUM 3.5 mmol/L (3.5-5.1); TOTAL PROTEIN, SERUM 6.8 g/dL (6.4-8.2)
[2020-04-27 06:51] LABS: BASOPHILS # (AUTO) 0.1 K/uL (0.0-8.0); BASOPHILS % (AUTO) 0.6 % (0.0-2.0); EOSINOPHILS # (AUTO) 0.1 K/uL (0.0-0.7); EOSINOPHILS % (AUTO) 0.7 % (0.0-7.0); HEMATOCRIT 28.3 % (36.7-47.1); HEMOGLOBIN 9.7 g/dL (12.5-16.3); LYMPHOCYTES # (AUTO) 0.8 K/uL (20.0-40.0); LYMPHOCYTES % (AUTO) 9.1 % (20.5-51.5); MEAN CORPUSCULAR HEMOGLOBIN 31.8 uug (23.8-33.4); MEAN CORPUSCULAR HGB CONC 34 g/dL (32.5-36.3); MEAN CORPUSCULAR VOLUME 92.9 fL (73.0-96.2); MONOCYTES # (AUTO) 1.2 K/uL (2.0-10.0); MONOCYTES % (AUTO) 13.7 % (0.0-11.0); NEUTROPHILS # (AUTO) 6.6 K/uL (1.8-8.9); NEUTROPHILS % (AUTO) 75.9 % (38.5-71.5); PLATELET COUNT (AUTO) 258 K/uL (152-348); RED BLOOD CELL COUNT(AUTO) 3.05 MIL/uL (4.06-5.63); WHITE BLOOD COUNT (AUTO) 8.7 K/uL (3.6-10.2)
[2020-04-27 06:55] VITALS: BP 158/74
--- NOTE | 2020-04-27 07:34 | NUR ---
PATIENT IS AWAKE ALERT WITH SOME FORGETFULNESS NOTED EPISODES OF AGITATION AND ANXIETY COMPOUNDED BY LANGUAGE BARRIER CALL LIGHTS AND PERSONAL BELONGINGS ARE WITHIN EASY REACH ALL NEEDS ANTICIPATED WILL CONTINUE TO OBSERVE
[2020-04-27] MEDS: METFORMIN HCL 500 MG TABLET PO SCH ×2 (08:29→17:03)
--- NOTE | 2020-04-27 09:21 | NUR ---
DR MICHEL HERE TO SEE PATIENT AWARE THAT PATIENT HAD FEVER EARLY THIS AM HE REMOVED THE TYREE DRAIN AND DRY DRESSING APPLIED PATIENT HAS MULTIPLE HUMBERTO IN HIS STAB SITE INCISIONS AND HE STATED THAT PATIENT SHOULD MAKE A FOLLOW UP APPOINTMENT TO HIS OFFICE IN ONE WEEK WILL INSTRUCT THE PATIENT IN THE EVENT OF A DISCHARGE.
--- NOTE | 2020-04-27 10:30 | NUR ---
PER SUSAN BELLY DUMP DRIVER STATED THAT SHE SPOKE WITH PATIENTS DAUGHTER JAMISON AND UPDATED HER ON THE PLAN OF CARE PATIENT WILL BE SWABBED TODAY FOR THE NOVEL CIFUENTES VIRUS BASED ON THE FEVER THAT HE HAS HAD 2 DAYS IN A ROW AND MOST LIKELY WILL BE DISCHARGED IN AM.TEMP AT THIS TIME IS 98.9 ORAL SUSAN AWARE.
--- NOTE | 2020-04-27 13:28 | NUR ---
NOVEL CIFUENTES VIRUS SWAB OBTAINED ORDERED AND SENT TO THE LAB
[2020-04-27 16:00] VITALS: BP 161/76
--- NOTE | 2020-04-27 16:30 | NUR ---
TEMP IS 100.7 COOLING MEASURES STARTED CALLED SUSAN AND LEFT HIM A MESSAGE.
--- NOTE | 2020-04-27 17:36 | NUR ---
SUSAN RETURNED CALL WITH NEW ORDERS AND NOTED
--- NOTE | 2020-04-27 20:00 | NUR ---
Received patient awake and alert. No signs or symptoms of distress at this time. Bed set to lowest position. Call light within reach. Side rails X2 are up. Will continue to monitor patient.
[2020-04-27 20:38] VITALS: BP 171/77
--- NOTE | 2020-04-28 00:07 | NUR ---
Urine collected and orders placed for UA/CS. Will continue to monitor patient.
[2020-04-28 00:28] LABS: *BILIRUBIN,URIN 2+ (NEGATIVE); *BLOOD, URINE 2+ (NEGATIVE); *CLARITY,URINE CLEAR (CLEAR); *COLOR,URINE YELLOW (YELLOW); *KETONES,URINE TRACE (NEGATIVE); *UROBILINOGEN,URINE 0.2 E.U./dl (NORMAL); LEUKOCYTE ESTERASE ,URINE NEGATIVE (NEGATIVE); NITRITE, URINE NEGATIVE (NEGATIVE); UGLUCOSE NEGATIVE (NEGATIVE)
[2020-04-28] MEDS: HYDROMORPHONE 1 MG/1 ML DISP.SYRIN IV PRN ×2 (02:43→21:46)
[2020-04-28 04:38] VITALS: BP 168/77
[2020-04-28] MEDS: PIPERACILLIN SODIUM/TAZOBACTAM 3.375 G in IV DEXTROSE 5% 50 ML IV SCH ×3 (05:05→23:00)
[2020-04-28] MEDS: MAGNESIUM HYDROXIDE 30 ML LIQUID UDC PO PRN (06:02)
[2020-04-28] MEDS: PANTOPRAZOLE SODIUM 40 MG TABLET.DR PO SCH (06:02)
[2020-04-28 06:43] VITALS: BP 154/67
--- NOTE | 2020-04-28 06:43 | NUR ---
Patient shows no signs or symptoms of distress at this time. BP rechecked and is 154/67. Temperature is 99.3. Will endorse patient to day shift nurse in stable condition.
[2020-04-28 07:03] LABS: BASOPHILS % (AUTO) 0.5 % (0.0-2.0); EOSINOPHILS # (AUTO) 0.1 K/uL (0.0-0.7); EOSINOPHILS % (AUTO) 0.8 % (0.0-7.0); HEMATOCRIT 29.6 % (36.7-47.1); HEMOGLOBIN 10.1 g/dL (12.5-16.3); LYMPHOCYTES # (AUTO) 0.8 K/uL (20.0-40.0); LYMPHOCYTES % (AUTO) 8.1 % (20.5-51.5); MEAN CORPUSCULAR HEMOGLOBIN 31.8 uug (23.8-33.4); MEAN CORPUSCULAR HGB CONC 34 g/dL (32.5-36.3); MEAN CORPUSCULAR VOLUME 92.8 fL (73.0-96.2); MONOCYTES # (AUTO) 1.3 K/uL (2.0-10.0); MONOCYTES % (AUTO) 14.2 % (0.0-11.0); NEUTROPHILS # (AUTO) 7.2 K/uL (1.8-8.9); NEUTROPHILS % (AUTO) 76.4 % (38.5-71.5); PLATELET COUNT (AUTO) 331 K/uL (152-348); RED BLOOD CELL COUNT(AUTO) 3.19 MIL/uL (4.06-5.63); WHITE BLOOD COUNT (AUTO) 9.4 K/uL (3.6-10.2)
[2020-04-28 07:07] LABS: CREATININE 1.2 mg/dL (0.6-1.3); POTASSIUM 3.1 mmol/L (3.5-5.1)
[2020-04-28] MEDS ORDERED: POTASSIUM CHLORIDE 20 MEQ TAB.PRT.SR PO ONE (08:00)
[2020-04-28 08:01] LABS: BACTERIA,URINE FEW /HPF (NONE SEEN); RBC,URINE 50-80 /HPF (0-3); SQUAMOUS EPITHELIAL CELL,UR FEW /HPF (NONE SEEN)
[2020-04-28] MEDS: METFORMIN HCL 500 MG TABLET PO SCH ×2 (08:01→17:11)
[2020-04-28 08:20] LABS: BILIRUBIN,DIRECT 3.6 mg/dL (0.0-0.2); BILIRUBIN,TOTAL 4.6 mg/dL (0.2-1.0); TOTAL PROTEIN, SERUM 6.8 g/dL (6.4-8.2)
[2020-04-28 12:00] VITALS: BP 153/81
[2020-04-28] MEDS: AMLODIPINE 5 MG TABLET PO SCH (12:53)
[2020-04-28] MEDS: POTASSIUM CHLORIDE 50 ML IV SCH ×2 (12:56→14:26)
[2020-04-28] MEDS: ACETAMINOPHEN 325 MG TABLET PO PRN ×2 (13:01→20:51)
[2020-04-28] MEDS: IV NS 1000 ML 1,000 ML IV PRN (16:02)
[2020-04-28 16:28] VITALS: BP 149/68
--- NOTE | 2020-04-28 18:55 | NUR ---
S: This patient is an 79-year-old male with past medical history of type 2 diabetes, colon cancer with hemicolectomy approximately 2 years ago, history of lymphoma, and recently discharged 04/15/2020 from [facility] previous admission for acute nonobstructing gallstone pancreatitis who presents to the hospital complaining of epigastric and right upper quadrant pain. According to the latest primary care assessment: "Assessment Acute pancreatitis. Lipase 1110 tended down to normal limits. Resolved Intractable abdominal pain, improved s/p surgery. Still complains of gas pain. Simethicone dose increased Cholelithiasis with acute cholecystitis. s/p laparoscopic cholecystectomy and placement of drain by general surgery on 04/23/2020. POD #3 HIDA scan results suggestive of acute cholecystitis with cystic duct obstruction Repeat MRCP negative for evidence of obstruction of CBD and cystic ducts, complications uploading final radiology report in the computer. See report in chart Sepsis, resolved Normocytic anemia hemoglobin 12.2 hematocrit 36.0 Renal insufficiency creatinine 1.1 BUN 19 Elevated total bilirubin trending down 5.4 --> 5.2 --> 4.0 Echo noted normal LV size and systolic function, EF 60%, no obvious wall motion abnormalities, mild LVH, grade 1 diastolic dysfunction Type 2 diabetes, A1c 7.4 History of colon cancer with hemicolectomy approximately 2 years ago History of mantle cell lymphoma Hypomagnesia, resolved Hypokalemia, replete Hypophosphatemia, replete Moderate protein malnutrition, hypoalbuminemia. Tolerating diet well s/p surgery Right lower lobe focal infiltrate on chest x-ray Suspected UTI on UA, pending QC Plan Continue hospitalization on MedSur Vital signs per unit protocol Pain, nausea and emesis management as needed Aspiration precautions Fall precautions Routine labs Replace electrolytes as needed DVT and GI prophylactics IV hydration Continue empiric broad-spectrum antibiotic Ambulate as tolerated Supplemental oxygen as needed General surgery consult, following: TYREE drain removed I will see the patient in the office in 1 week for staple removal Disposition of patient from this point on is up to hospitalist and GI consultants Cardiology consult, following GI consult, following ID consult, requested Plan of care discussed with nursing staff" A: BUN is WNL. Scr is on the higher end of normal. WBC is normal Chest X-ray showing infiltrates. Pt is febrile. UA indicative of UTI. Haven't received Vanco dose recently. Pending cultures. P: Recommend to load with vanco 1g x1 today @2000 Recommend to start vanco 750mg q18h starting tomorrow @1400 with target trough of 15-20 for suspected infection. Trough ordered for 04/30 @0700. Nurses, please hold dose if >20. Pharmacy will continue to monitor AM labs for renal function and vanco levels to determine the next appropriate vanco dose.
[2020-04-28] MEDS ORDERED: VANCOMYCIN IV 1,000 MG in IV DEXTROSE 5% 250 ML IV ONE (20:00)
[2020-04-28 20:14] VITALS: BP 148/72
[2020-04-29] MEDS: SIMETHICONE 80 MG TAB.CHEW PO PRN (00:46)
[2020-04-29] MEDS: HYDROMORPHONE 1 MG/1 ML DISP.SYRIN IV PRN (03:17)
[2020-04-29 04:08] VITALS: BP 122/58
[2020-04-29] MEDS: PIPERACILLIN SODIUM/TAZOBACTAM 3.375 G in IV DEXTROSE 5% 50 ML IV SCH ×2 (06:16→13:10)
[2020-04-29] MEDS: PANTOPRAZOLE SODIUM 40 MG TABLET.DR PO SCH (06:16)
[2020-04-29] MEDS: IV NS 1000 ML 1,000 ML IV PRN (06:16)
[2020-04-29] MEDS: ACETAMINOPHEN 325 MG TABLET PO PRN (06:49)
[2020-04-29] MEDS: METFORMIN HCL 500 MG TABLET PO SCH (08:04)
[2020-04-29] MEDS: AMLODIPINE 5 MG TABLET PO SCH (08:05)
[2020-04-29 09:18] LABS: BASOPHILS % (AUTO) 0.3 % (0.0-2.0); EOSINOPHILS # (AUTO) 0.1 K/uL (0.0-0.7); HEMATOCRIT 31.3 % (36.7-47.1); HEMOGLOBIN 10.5 g/dL (12.5-16.3); LYMPHOCYTES # (AUTO) 0.5 K/uL (20.0-40.0); LYMPHOCYTES % (AUTO) 6.3 % (20.5-51.5); MEAN CORPUSCULAR HEMOGLOBIN 31.1 uug (23.8-33.4); MEAN CORPUSCULAR HGB CONC 34 g/dL (32.5-36.3); MEAN CORPUSCULAR VOLUME 92.5 fL (73.0-96.2); MONOCYTES # (AUTO) 0.9 K/uL (2.0-10.0); MONOCYTES % (AUTO) 10.4 % (0.0-11.0); PLATELET COUNT (AUTO) 462 K/uL (152-348); RED BLOOD CELL COUNT(AUTO) 3.38 MIL/uL (4.06-5.63); WHITE BLOOD COUNT (AUTO) 8.5 K/uL (3.6-10.2)
[2020-04-29 09:31] LABS: ALANINE AMINOTRANSFERASE 32 U/L (16-63); ALKALINE PHOSPHATASE 71 U/L (50-136); ASPARTATE AMINOTRANSFERASE 19 U/L (15-37); BILIRUBIN,DIRECT 4.2 mg/dL (0.0-0.2); BILIRUBIN,TOTAL 4.9 mg/dL (0.2-1.0); CARBON DIOXIDE 30 mmol/L (21-32); CHLORIDE 101 mmol/L (98-107); CREATININE 1.4 mg/dL (0.6-1.3); GLUCOSE 271 mg/dL (74-106); POTASSIUM 3.2 mmol/L (3.5-5.1); TOTAL PROTEIN, SERUM 7.5 g/dL (6.4-8.2); UREA NITROGEN, BLOOD 8 mg/dL (7-18)
[2020-04-29 11:26] VITALS: BP 152/51
[2020-04-29] MEDS ORDERED: LEVO500T2 PO (12:36)
[2020-04-29] MEDS ORDERED: AMLO5TAB9 PO (12:36)
--- NOTE | 2020-04-29 13:55 | NUR ---
PHARMACY VANCOMYCIN PROGRESS NOTE, DAY 2 INDICATION: S/P LAP FLORNETIN PER PRIMARY NOTE/DISCHARGE SUMMARY" "Patient was seen and examined at the bedside No overnight acute events or changes in condition reported by primary nurse Repeated COVID19 serology is negative Patient is status post laparoscopic cholecystectomy by Dr. Paul, TYREE drain removed by surgeon During hospitalization multiple consults were obtained to aid in management of patient condition Patient was seen by GI, cardiology, nephrology, ID Patient can be discharged home with home health on oral antibiotic therapy to complete 7-day course." CONTINUE CURRENT VANCOMYCIN DOSE PER PRIMARY, PLAN TO BE DISCHARGED ON PO [facility] PHARMACY WILL CONTINUE TO FOLLOW DAILY LONG PATIENT IS IN-HOUSE
[2020-04-29] MEDS ORDERED: VANCOMYCIN IV 750 MG in IV DEXTROSE 5% 250 ML IV SCH (14:00)
--- NOTE | 2020-04-29 15:15 | NUR ---
dc orders received noted and carried out,dc heplock per md orders,dc instruction and education given to the pt and his daughter .pt said he will follow up with dr travis in one week pt left the facility with private car in stable condition
== END 2020-04-29 15:15 | disposition home health service (06) | DRG 853 ==
LOC: ER 01:36 → MEDSURG3 04:19
PROVIDERS: ADMIT Hospitalist; ATTEND Nurse Practitioner Acute Care
PROC: 0FT44ZZ Resection of Gallbladder, Percutaneous Endoscopic Approach (ICD-10-PCS; principal; 2020-04-23)
DX: A41.9 Sepsis, unspecified organism (principal); K85.90 Acute pancreatitis without necrosis or infection, unspecified; N17.0 Acute kidney failure with tubular necrosis; J18.9 Pneumonia, unspecified organism; K80.01 Calculus of gallbladder with acute cholecystitis with obstruction; E44.0 Moderate protein-calorie malnutrition; K80.11 Calculus of gallbladder with chronic cholecystitis with obstruction; N39.0 Urinary tract infection, site not specified; I16.0 Hypertensive urgency; E83.39 Other disorders of phosphorus metabolism; E83.42 Hypomagnesemia; E86.0 Dehydration; E87.6 Hypokalemia; E11.9 Type 2 diabetes mellitus without complications; D64.9 Anemia, unspecified; N40.0 Benign prostatic hyperplasia without lower urinary tract symptoms; Z85.038 Personal history of other malignant neoplasm of large intestine; Z90.49 Acquired absence of other specified parts of digestive tract; I10 Essential (primary) hypertension; E88.09 Other disorders of plasma-protein metabolism, not elsewhere classified; Z68.24 Body mass index [BMI] 24.0-24.9, adult; I35.0 Nonrheumatic aortic (valve) stenosis; Z79.84 Long term (current) use of oral hypoglycemic drugs; Z85.72 Personal history of non-Hodgkin lymphomas
CPT/HCPCS: 36415; 70030-TC; 71045; 74181; 78445; 83690; 83735; 84100; 85025; 87040; 87086; 93005; 93307; A4663; A9537; C1758; C9113; G0378; J0330; J1170; J1885; J2270; J2405; J2543; J2710; J2765; J3010; J3370; J3475; J3480; J3490; J7030; J7040; J7050; J7060; U0003-CS

== ENCOUNTER 2022-08-21 16:39 | Emergency (ER) | payer OTHER ==
[~2022-08-21] VITALS: Ht 162.6 cm; Wt 72.6 kg
[~2022-08-21 16:39] MED LIST changes: +AMLO-212 PO; +LEVO500T2 PO; +[UNRECOGNIZED DRUG - CODE] PO
[2022-08-21] MEDS ORDERED: IV NORMAL SALINE 1000 ML BAG IV ONE ×2 (16:45→17:45)
[2022-08-21 17:01] LABS: HEMATOCRIT 32.8 % (36.7-47.1); MEAN CORPUSCULAR HEMOGLOBIN 32.1 uug (23.8-33.4); MEAN CORPUSCULAR VOLUME 95.5 fL (73.0-96.2); PLATELET COUNT (AUTO) 240 K/uL (152-348)
[2022-08-21 17:09] LABS: CARBON DIOXIDE 31 mmol/L (21-32); CHLORIDE 102 mmol/L (98-107); CREATININE 1.1 mg/dL (0.6-1.3); GLUCOSE 146 mg/dL (74-106); POTASSIUM 4.1 mmol/L (3.5-5.1); UREA NITROGEN, BLOOD 24 mg/dL (7-18)
[2022-08-21] MEDS ORDERED: METF-442 PO (17:15)
[2022-08-21] MEDS ORDERED: ATOR20TA PO (17:15)
[2022-08-21 17:21] LABS: ALANINE AMINOTRANSFERASE 32 U/L (16-63); ALKALINE PHOSPHATASE 39 U/L (50-136); ASPARTATE AMINOTRANSFERASE 28 U/L (15-37); BILIRUBIN,DIRECT 1.6 mg/dL (0.0-0.2); BILIRUBIN,TOTAL 2.1 mg/dL (0.2-1.0); TOTAL PROTEIN, SERUM 7.4 g/dL (6.4-8.2)
--- NOTE | 2022-08-21 19:10 | NUR ---
Pt is requesting to be discharged home. Pt is awake A/O X4, I translated for Pt in [place] and Dr Cortez. Pt made aware of consequences of living the hospital AMA, and Pt is willing to sign and leave against medical advice.
--- NOTE | 2022-08-21 19:23 | NUR ---
Patient does not wish to proceed with medical care recommended by Dr. Cortez. Patient given information related to possible complications, up to and including , which could occur as a result of leaving the hospital at this time. Patient verbalizes understanding of risks involved due to leaving against medical advice. Patient has signed AMA form.
[2022-08-21 19:26] VITALS: BP 127/67
== END 2022-08-21 19:27 | disposition left against medical advice (07) ==
LOC: ER 16:42
DX: R55 Syncope and collapse (principal); E86.0 Dehydration; R94.31 Abnormal electrocardiogram [ECG] [EKG]; E11.9 Type 2 diabetes mellitus without complications; Z85.038 Personal history of other malignant neoplasm of large intestine; Z53.29 Procedure and treatment not carried out because of patient's decision for other reasons
CPT/HCPCS: 99285; 70450; 96360; 71045; 80076; 80048; 85025; 85730; 84484; 93005; 72125; 83605; J7040; 36415; A4663